=== PATIENT | male | born 2000 | race Caucasian/White ===

== ENCOUNTER 2020-09-30 21:28 | Emergency (ER) | payer OTHER ==
[~2020-09-30] VITALS: Ht 182.9 cm; Wt 95.8 kg
[2020-09-30 23:31] VITALS: BP 131/70
--- NOTE | 2020-10-01 00:15 | NUR ---
PT SWABBED WITH INCORRECT COVID SWAB PER LAB. SWAB SPECIMEN COLLECTED SECOND TIME WITH CORRECT SWAB. PT AND MD AWARE.
== END 2020-10-01 00:53 | disposition home or self-care (01) ==
LOC: ED 22:10
DX: U07.1 COVID-19 (principal); J06.9 Acute upper respiratory infection, unspecified; B34.9 Viral infection, unspecified; J02.8 Acute pharyngitis due to other specified organisms; J40 Bronchitis, not specified as acute or chronic
CPT/HCPCS: 71045; 87081; 87880; 99284; U0003; U0005